=== PATIENT | female | born 1945 | race Caucasian/White ===

== ENCOUNTER → 2022-01-20 | Outpatient (CLI) | payer MEDICARE ==
--- NOTE | 2022-01-21 07:45 | MM ---
Reason for exam: clinical finding. Last mammogram was performed 9 years and 11 months ago. History: Patient is postmenopausal. Taking estrogen for 18 years 7 months beginning at age 48. Taking progesterone for 18 years 7 months beginning at age 48. Physical Findings: A clinical breast exam by your physician is recommended on an annual basis and results should be correlated with mammographic findings. MG 3D Diag Mammo W/Cad JACQUES Bilateral CC and MLO view(s) were taken. Prior study comparison: February 13, 2012, bilateral digital screening mammo w/CAD. June 30, 2007, workup right diagnostic mammogram. The breast tissue is heterogeneously dense. This may lower the sensitivity of mammography. Mass density measures 2cm residing upper outer quadrant 3cm from nipple. Results were given to the patient verbally at the time of the exam. ASSESSMENT: Incomplete: need additional imaging evaluation, BI-RAD 0 RECOMMENDATION: Ultrasound of the right breast.
--- NOTE | 2022-01-21 07:46 | USB ---
Reason for exam: additional evaluation requested from abnormal screening. History: Patient is postmenopausal. Taking estrogen for 18 years 7 months beginning at age 48. Taking progesterone for 18 years 7 months beginning at age 48. Physical Findings: Breast exam performed by Dr. Velez. US Breast Limited RT Right limited breast ultrasound including focal area of concern, retroareolar and axilla demonstrates a 2.1 x 0.7 x 1.9cm lesion at 9 o'clock. Results were given to the patient verbally at the time of the exam. ASSESSMENT: Probably benign, BI-RAD 3 RECOMMENDATION: Follow-up diagnostic mammogram and ultrasound of the right breast in 6 months.
== END | disposition home or self-care (01) ==
LOC: RADMAMWWP 14:17
PROVIDERS: ATTEND Family Medicine
DX: R92.8 Other abnormal and inconclusive findings on diagnostic imaging of breast (principal); Z78.0 Asymptomatic menopausal state
CPT/HCPCS: 77066; 76642; G0279; 77062